=== PATIENT | male | born 1950 | race Caucasian/White ===

== ENCOUNTER → 2023-05-30 06:35 | Outpatient (REF) | payer OTHER, SELFPAY | LOC: RAD 06:35 | PROVIDERS: ATTENDING PHYSICIAN Urology; FAMILY PHYSICIAN Family Medicine; REFERRING PHYSICIAN Internal Medicine | DX: R10.31 Right lower quadrant pain (principal) | CPT/HCPCS: 74176 ==

== ENCOUNTER → 2023-06-13 08:36 | Outpatient (REF) | payer OTHER, SELFPAY ==
[2023-06-13 09:36] LABS: Hematocrit 41.3 % (39.0-52.0); Mean Corp Hgb Conc. 33.9 g/dL (33.0-37.0); Mean Corpuscular Volume 85.7 fL (80.0-94.0); Mean Platelet Volume 11.1 fL (7.4-10.4); Platelet Count 96 10^3/uL (130-400); Red Blood Cell Count 4.82 10^6/uL (4.70-6.10); Red Cell Dist. Width 13.6 % (11.5-14.5); Urine Albumin 1+ (Neg - Trace); Urine Bilirubin Negative (Negative); Urine Character Clear (Clear); Urine Color Yellow; Urine Glucose Negative (Negative); Urine Ketone Negative (Negative); Urine Leukocyte Negative (Negative); Urine Nitrite Negative (Negative); Urine Occult Blood Negative (Negative); Urine Specific Gravity 1.015 (<1.030); Urine Urobilinogen Negative (Neg - 1+); White Blood Cell Count 5.3 10^3/uL (4.8-10.8)
[2023-06-13 09:59] LABS: ALT (SGPT) 20 U/L (0-50); AST (SGOT) 24 U/L (17-59); Albumin 4.5 g/dl (3.5-5.0); Alkaline Phosphatase 57 U/L (38-126); Amylase 53 U/L (30-110); Blood Urea Nitrogen 20 mg/dl (9-20); Carbon Dioxide 26 mmol/L (22-30); Chloride 103 mmol/L (98-107); Direct Bilirubin 0.1 mg/dl (0.0-0.4); Glucose 133 mg/dl (70-99); Lipase 123 U/L (23-300); Potassium 4.2 mmol/L (3.5-5.1); Sodium 135 mmol/L (135-145); Total Bilirubin 1.1 mg/dl (0.2-1.3); Urine Bacteria Moderate (Negative); Urine Red Blood Cell 0-2 /HPF (0-2); Urine White Cell 0-2 /HPF (0-5); eGFR > 60.00
[2023-06-13 10:06] LABS: C-Reactive Protein < 5.00 mg/L (0.0-10.00)
[2023-06-13 10:14] LABS: Erythrocyte Sed Rate 11 mm/hour (0-20)
== END ==
LOC: REG 08:36
PROVIDERS: ATTENDING PHYSICIAN Nurse Practitioner Family; FAMILY PHYSICIAN Family Medicine; REFERRING PHYSICIAN Urology
DX: R10.31 Right lower quadrant pain (principal)
CPT/HCPCS: 36415; 80053; 81003; 81015; 82150; 82248; 83690; 85027; 85652; 86140; 87086

== ENCOUNTER → 2023-06-15 13:57 | Outpatient (REF) | payer OTHER, SELFPAY | LOC: RAD 13:57 | PROVIDERS: ATTENDING PHYSICIAN Nurse Practitioner Family; FAMILY PHYSICIAN Family Medicine | DX: R10.31 Right lower quadrant pain (principal) | CPT/HCPCS: 74177; Q9967 ==

== ENCOUNTER → 2023-07-07 11:10 | Outpatient (REF) | payer OTHER, MEDICARE, SELFPAY ==
[2023-07-07 12:12] LABS: Urine Albumin Trace (Neg - Trace); Urine Bilirubin Negative (Negative); Urine Character Clear (Clear); Urine Color Yellow; Urine Glucose Trace (Negative); Urine Ketone Negative (Negative); Urine Leukocyte Negative (Negative); Urine Nitrite Negative (Negative); Urine Occult Blood Negative (Negative); Urine Specific Gravity 1.015 (<1.030); Urine Urobilinogen 1+ (Neg - 1+)
== END ==
LOC: REG 11:10
PROVIDERS: ATTENDING PHYSICIAN Urology; FAMILY PHYSICIAN Family Medicine
DX: N39.0 Urinary tract infection, site not specified (principal)
CPT/HCPCS: 81003; 87086

== ENCOUNTER → 2023-07-28 06:37 | Outpatient (REF) | payer OTHER, MEDICARE, SELFPAY | LOC: RAD 06:37 | PROVIDERS: ATTENDING PHYSICIAN Surgery; FAMILY PHYSICIAN Family Medicine; REFERRING PHYSICIAN Urology | DX: R10.31 Right lower quadrant pain (principal); R10.32 Left lower quadrant pain | CPT/HCPCS: 76882 ==

== ENCOUNTER 2024-04-13 11:09 | Inpatient (IN) | payer OTHER, MEDICARE, SELFPAY ==
[2024-04-13] VITALS (11 sets, daily range): BP systolic 99–144; BP diastolic 59–134; PULSE 71; BMI 30.1
--- NOTE | 2024-04-13 07:46 | ED.GENMED ---
History of Present Illness
General
Chief Complaint: Breathing Problem
Source: patient
Time Seen by Provider: 04/13/24 07:31
History of Present Illness
History of Present Illness:
73-year-old male presents to the emergency room complaining of shortness of breath. He notes the shortness of breath primarily when he is laying flat. This has been present for the past couple weeks but seems more significant over the past day or
so. This morning he felt quite short of breath and it was distressing to him prompting him to come to the emergency room for evaluation. Sitting up the patient feels somewhat better. He denies any chest pain. Patient has a history of
cardiomyopathy and congestive heart failure. He states he is compliant with his medications. He does not take Lasix regularly but did take a dose of 20 mg today. Patient states his weight is up maybe a pound or 2 over the past couple days.
However he has been losing weight after starting Ozempic. No nausea or vomiting. Patient denies any fever
Past History
Past History
ED Past Medical History: Arrthythmia (SVT s/p ICD placement), CHF, CVA (2005 with no residual other than 'slight weakness left arm'), GERD, HTN, Hypercholesterolemia, NIDDM and Other (Cardiomyopathy)
ED Past Surgical History: Cardiac (Pacemaker/ICD) and Tonsilectomy
Patient has exhibited threatening behavior?: No
Social History
Tobacco: Non-smoker
Alcohol: None
Personal:
Living: with family
Employment: Employed (haul truck driver)
Phy Exam
Physical Exam
Physical Exam:
General: Awake, Alert, Oriented X3. No acute distress.
Vitals: unremarkable
Head: Atraumatic
Eyes: Pupils equal, EOMI
Throat: Airway intact, no exudates
Neck: Trachea midline
Lungs: Crackles bilateral lower lung glez
Heart: Regular rate, no murmurs
Abd: Soft, Nontender, No pulsatile mass
Neuro: Nonfocal
Skin: Warm, dry, no rash
Extremities: pulses equal b/l, no edema
Scores
Heart Failure Risk
Heart Failure Risk Score: Yes
History of Stroke or TIA: Yes
History of intubation for respiratory distress: No
Heart rate on ED arrival >/= 110: No
SaO2 <90% on arrival on room air: No
HR >/=110 during 3min walk test (or too ill to perform test): Yes
ECG has acute ischemic changes: No
Urea >/=12mmol/L (BUN 33.6mg/dL): No
Serum CO2>/=35mmol/L: No
Troponin I or T elevated to NE Level (0.4mg/dL): No
NT-proBNP >/=5,000ng/L (5,000pg/ml): No
HF Risk Score: 3
Admission Status: HIGH RISK 15.9% Consider SNF treatment or admission to hospital
Course
Orders/Labs/Results
Orders:
Orders
04/13/24 07:05
EKG [Electrocardiogram (*1)] Urgent
Reason for Study: Shortness of Breath
EKG- Treatment ONCE
04/13/24 07:35
Complete Blood Count/With Diff Urgent
Comprehensive Metabolic Panel Urgent
NT-proBNP Urgent
Troponin I Urgent
04/13/24 07:41
CR Chest - 2 Views Urgent
Comment:
Reason For Exam: Shortness of breath
04/13/24 07:53
COVID-19 Antigen Urgent
Source: Nasal Swab
Influenza A+B Rapid Molecular Urgent
RONALDO Source: Nasal Swab
Specimen Description:
04/13/24 09:32
Furosemide [Lasix] 40 mg IV NOW STA
04/13/24 10:52
Admit/Transfer Patient As Directed
Co-Sign Provider:
Level of Care: Inpatient admission
Assign to:: IVU
Physician / Group: Armando
Diagnosis: Acute CHF
Reason for Hospitalization: IV lasix, cardio consult
Expected length of stay greater than two midnights?: Yes
ELOS- Estimated Length of Stay in days: 3
I certify the patient meets the requirements for IP care: Yes
PRN Pain Medication Management As Directed
May give lesser potent ordered pain med per pt: Yes
preference::
Protocol:: Medication orders for pain may be administered in a
manner that supports deferring to patient preference
when the pt is:
- Requesting an ordered lesser potent pain medication.
Least to most potent pain medications are defined
as: acetaminophen < NSAID < tramadol < opioids
(morphine, oxycodone, hydromorphone).
- Requesting a lesser dose of the same medication IF
ORDERED.
- Requesting a less intrusive route of administration
if both routes are prescribed by the provider (PO <
IV).
04/13/24 10:58
Code Status As Directed
Resuscitation Status: Full Code
04/13/24 11:09
Echo 2D MMode Color/Doppler [Echo 2D MMode Color/Doppler] Routine
Reason for Study: CHF
04/13/24 22:00
Cpap [RESP] HS
Patient to use own unit?: No
Set Pressure (cm H2O): 5
Abnormal Lab Results
04/13/24
07:35
WBC 4.6 L 10^3/uL
(4.8-10.8)
RBC 4.41 L 10^6/uL
(4.70-6.10)
Plt Count 100 L 10^3/uL
(130-400)
MPV 11.2 H fL
(7.4-10.4)
Absolute Lymphs (auto) 0.9 L 10^3/uL
(1.2-3.4)
Lymphocytes % 19.8 L %
(20.5-51.1)
Glucose 105 H mg/dl
(70-99)
04/13/24 07:35
04/13/24 07:35
Vital Signs
Initial and Last Documented VS:
Initial Vital Signs
Temp Pulse Resp BP Pulse Ox
98.2 F 82 20 115/75 95
04/13/24 07:00 04/13/24 07:00 04/13/24 07:00 04/13/24 07:00 04/13/24 07:00
Last Documented Vital Signs
Temp Pulse Resp BP Pulse Ox
98.2 F 80 16 101/79 96
04/13/24 07:00 04/13/24 11:00 04/13/24 10:09 04/13/24 10:06 04/13/24 11:00
MDM/Problems Addressed
Differential Diagnosis Includes:
Pneumonia, influenza, COVID, CHF exacerbation, anemia
MDM/Problems Addressed:
Patient presents with shortness of breath particularly orthopnea. He is hemodynamically stable. His pulse ox has been hovering in the 90-92 range. Workup here reveals bilateral crackles on physical exam. His BNP is quite elevated at 2750. The
last measurement we have here was not 2020 and it was 163. Patient has not had an echocardiogram in about 4 years. He does not take Lasix on a daily basis but only on a as needed basis. It seems that his he has been had very well-controlled heart
failure for some time. The fact that he has an exacerbation now with hypoxia suggest the need for repeat echo and cardiology intervention. I do not believe he is a candidate for dose of Lasix at discharge. Will admit him to the hospitalist.
*Radiology
Radiology exam reviewed: preliminary read by ED provider (Pulmonary edema on my review of the patient's chest x-ray)
*Pulse Oximetry
Patient hypoxic: yes
Comment: 91
*EKG
Interpreted by ED Provider?: Yes
Interpretation: abnormal
Heart Rate: 82
Rate: normal
Rhythm: sinus and PVC's
QRS Pattern: right bundle branch block
Ischemia: non-specific ST changes
*Telephone Recorder Interpretation
Rate: normal
Interpretation: abnormal
Rhythm: sinus and PVC's
*Critical Care Note
Total Time (30-74mins, 75-104mins- exclusive of procedures): Not Applicable
Patient Management
Social determinants of health affecting care: Strong social support
Discussion with other providers: Hospitalist
ED Attending Note
-
Portions of this chart may have been created with voice recognition software.� Occasional wrong word or��sound alike� substitutions may have occurred due to the inherent limitations of voice recognition software.
Discharge Plan
Departure
Patient Disposition: Admit
Date of Disposition: 04/13/24
Time of Disposition: 09:49
Admit to: Med/Surg
Presentation/result/management discussed w/ accepting MD/DO: Hospitalist
Condition: Serious
Discharge Problem:
CHF (congestive heart failure)
Interventions
Interventions:
*Risk Screen - Suicide Last Done: 04/13/24 07:00
*General Assessment Last Done: 04/13/24 07:00
*Neglect/Abuse Screening Last Done: 04/13/24 07:38
*ED COVID-19 Vaccine History Last Done: 04/13/24 07:00
ED- Cardiac Assessment Last Done: 04/13/24 07:38
ED- Pulmonary Assessment Last Done: 04/13/24 07:38
[2024-04-13 07:48] LABS: % Basophils 0.9 % (0-2); % Eosinophils 0.4 % (0-6); % Immature Granulocytes 0.2 % (0-0.5); % Lymphocytes 19.8 % (20.5-51.1); % Monocytes 5.9 % (1.7-9.3); % Neutrophils 72.8 % (42.2-75.2); Absolute Lymphocytes 0.9 10^3/uL (1.2-3.4); Absolute Monocytes 0.3 10^3/uL (0.1-0.6); Absolute Neutrophils 3.3 10^3/uL (1.4-6.5); Hematocrit 39.7 % (39.0-52.0); Hemoglobin 13.4 g/dL (13.0-18.0); Mean Corp Hgb Conc. 33.8 g/dL (33.0-37.0); Mean Corpuscular Hgb 30.4 pg (27.0-31.0); Mean Platelet Volume 11.2 fL (7.4-10.4); Nucleated Red Blood Cells % 0 % (-); Platelet Count 100 10^3/uL (130-400); Red Blood Cell Count 4.41 10^6/uL (4.70-6.10); Red Cell Dist. Width 13.3 % (11.5-14.5); White Blood Cell Count 4.6 10^3/uL (4.8-10.8)
[2024-04-13 08:02] LABS: ALT (SGPT) 24 U/L (0-50); AST (SGOT) 24 U/L (17-59); Albumin 4.4 g/dl (3.5-5.0); Alkaline Phosphatase 46 U/L (38-126); Blood Urea Nitrogen 19 mg/dl (9-20); Calcium 8.4 mg/dl (8.4-10.2); Carbon Dioxide 26 mmol/L (22-30); Chloride 102 mmol/L (98-107); Glucose 105 mg/dl (70-99); Potassium 4.5 mmol/L (3.5-5.1); Sodium 138 mmol/L (135-145); Total Bilirubin 1.3 mg/dl (0.2-1.3); Total Protein 6.7 g/dl (6.3-8.2); eGFR > 60.00
[2024-04-13 08:21] LABS: COVID-19 Antigen Negative (Negative)
[2024-04-13 08:39] LABS: NT-proBNP 2750 pg/ml; Troponin I 0.017 ng/ml
[2024-04-13] MEDS: LASIX 40 MG IV ×2 (09:38→18:30)
--- NOTE | 2024-04-13 11:01 | HPS.HSE ---
Family Physician
-
Family Physician: Shreyas Flores
Chief Complaint
-
Orthopnea
History of Present Illness
73-year-old male here complaining of progressive orthopnea. Symptoms were mild in nature initially and progressively worsened prompting his visit to the emergency room. They were much worse early this morning at 5 AM.
Denies any other symptoms. Denies dyspnea on exertion. Denies chest pressure or pain.
Takes Lasix on a as needed basis, last dose this morning. Does get leg cramps due to Lasix.
Denies weight gain and in fact states he has been losing weight due to Ozempic. Denies lower extremity swelling.
Medical History
Past Medical History
Past Medical History: Reports Other
Additional Past Medical History:
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
Supraventricular tachycardia
History of TIA 2005
Essential hypertension
GERD
DM2
PARDEEP
Small bowel lipoma
Essential tremor
Peptic ulcer disease
Diverticulosis
Past Surgical History: Reports Other
Additional Past Surgical History:
ICD
Tonsillectomy
Social History
Tobacco: Non-smoker
Alcohol: None
Drug: None
Personal:
Living: With Family
Employment: Employed
Family History
Family History: Not pertinent
Allergies / Home Medications
Allergies reflects when Allergies were last updated in [facility].
Home Medications with original date entered in [facility]
Allergy/Medication List:
Allergies
Allergy/AdvReac Type Severity Reaction Status Date / Time
No Known Allergies Allergy Verified 04/13/24 07:04
Home Medications
tamsulosin 0.4 mg capsule 0.4 mg PO BID Urinary issue 12/05/18
clonazepam 0.5 mg tablet 0.5 mg PO BID anxiety 01/04/20
ergocalciferol (vitamin D2) 1,250 mcg (50,000 unit) capsule 50,000 units PO SA Supplement 01/04/20
escitalopram oxalate 20 mg tablet 20 mg PO BID Mental Health/Anxiety 01/04/20
ezetimibe 10 mg tablet 10 mg PO QPM High cholesterol 01/04/20
furosemide 20 mg tablet 20 mg PO DAILYPRN PRN edema,swelling 01/04/20
gabapentin 100 mg capsule 100 mg PO BID Pain 01/04/20
lansoprazole 30 mg capsule,delayed release 30 mg PO BID Gastrointestinal issue 01/04/20
metformin 500 mg tablet,extended release 24 hr 500 mg PO DAILY Diabetes 01/04/20
rosuvastatin 40 mg tablet (Crestor) 40 mg PO QPM High cholesterol 01/04/20
sacubitril 24 mg-valsartan 26 mg tablet (Entresto) 1 tab PO BID Heart Failure 10/04/21
ferrous sulfate 325 mg (65 mg iron) tablet (FeroSul) 325 mg PO Q48H Supplement 12/01/21
metoprolol succinate 25 mg tablet,extended release 24 hr 50 mg PO HS Heart disease/condition 12/01/21
apixaban 5 mg tablet (Eliquis) 5 mg PO BID 30 days #60 tabs 12/08/21
acetaminophen 325 mg tablet (Tylenol) 650 mg PO Q4HPRN PRN MILD PAIN 04/13/24
doxycycline hyclate 20 mg tablet 20 mg PO BID 04/13/24
semaglutide 0.25 mg or 0.5 mg (2 mg/3 mL) subcutaneous pen injector (Ozempic) 0.5 mg SC SA 04/13/24
Review of Systems
-
History Source: Patient
A 12 point ROS was completed and negative except as noted: Yes
Physical Exam
Vital Signs
Vital Signs
Temp Pulse Resp BP Pulse Ox
98.2 F 78 16 101/79 95
04/13/24 07:00 04/13/24 10:00 04/13/24 10:09 04/13/24 10:06 04/13/24 10:00
Physical Exam
General: Well Developed, Well Nourished, No Apparent Distress and Comfortable
HEENT: NormoCephalic, Anicteric and Moist mucous membranes
Respiratory: Clear
Cardiac: S1/S2 and Regular Rhythm
Breast: Deferred by me
GI: Soft, Non Tender and Non Distended
Genito-urinary: Deferred by me
Musculoskeletal: No Clubbing, No Cyanosis and No Edema
Skin: Warm and Dry
Neuro: AO x 3
Hematologic/Lymphatic: No Lymphadenopathy
Psych: Calm
Laboratory Results
-
04/13/24 07:35
04/13/24 07:35
Laboratory Results
Total Bilirubin 1.3 mg/dl (0.2-1.3) 04/13/24 07:35
AST 24 U/L (17-59) 04/13/24 07:35
ALT 24 U/L (0-50) 04/13/24 07:35
Alkaline Phosphatase 46 U/L (38-126) 04/13/24 07:35
Troponin I 0.017 ng/ml 04/13/24 07:35
Impression/Plan
-
Acute on chronic heart failure with reduced EF -admit to IVU. Continue IV Lasix. Chest x-ray shows some pulmonary edema. BNP over 1999. Consult cardiology.
History of TIA -on chronic anticoagulation with Eliquis. History of possible mural thrombus due to cardiomyopathy.
Essential hypertension -stable.
DM 2 without hyperglycemia -hold metformin. Check hemoglobin A1c. Hold Ozempic. Use low resistance insulin scale.
PARDEEP -on CPAP nightly. Resume in the hospital.
Chronic gingivitis -on chronic suppressive doxycycline.
Hyperlipidemia -rosuvastatin.
Essential tremor
History of pancytopenia -hemoglobin has recovered. WBCs and platelets remain low. Follow-up with hematology after discharge. Diagnosed with vitamin B12 deficiency in the past.
Full code
updated at the bedside.
--- NOTE | 2024-04-13 13:54 | CON.CAR ---
Addendum entered and electronically signed by Juanito Whitt MD 04/13/24 17:11:
I saw and examined the patient.
The [employer]'s note was reviewed and I agree with the note.
Comment: Briefly, 73-year-old man past medical history of heart failure with reduced ejection fraction in the setting of nonischemic cardiomyopathy as well as nonsustained VT status post ICD who presents with dyspnea and abdominal distention
concerning for acute on chronic heart failure exacerbation.
Patient reports several days of dyspnea and abdominal distention/bloating
Chest x-ray suggestive of pulmonary vascular congestion and proBNP elevated to 2700
OptiVol is elevated as well in keeping with heart failure
Echo with severely reduced left ventricular systolic function however no significant change from prior
Plan for IV Lasix twice daily
Wean oxygen as able
Follow daily weights, renal function and electrolytes
Continue home metoprolol and Entresto
Would consider addition of SGLT2 and/or Aldactone
He is not maintained on maintenance diuretic reviewed that he will likely need daily Lasix dosing on discharge
Original Note:
Consultation
Consultation Request
Date/Time Consultation Requested: 04/13/2024, 1100
Date/Time Consultation Performed: 04/13/2024, 1345
Requesting Provider: Dr. Rubi
Performing Provider: THOMAS Lopez for Dr. Whitt
Reason for Consultation: Heart failure
Medical History
-
Chief Complaint: SOB
History of Present Illness:
Patient is a 73-year-old male with PMH of HFrEF, diagnosed in 1992, nonobstructive CAD, NSVT s/p ICD, DM, stroke maintained on chronic anticoagulation with Eliquis, who presented to ED today with 2 week h/o intermittent shortness of breath. He
describes becoming short of breath when he first would lie flat with resolution of symptoms after a minute or two. He has had no exertional shortness of breath. This morning after lying flat the shortness of breath became worse and did not
resolve. He has had no edema but does feel his abdomen was mildly distended yesterday. He is on Ozempic and has been losing weight, gradually a few ounces every day, in the past 2 to 3 days his weight has gone up 2 pounds. Had been using Lasix on
PRN basis, taking infrequently but did take a dose this morning. Follows with Dr. Goodwin in cardiology office, last seen in April 2023. Heart failure regimen includes Entresto, Toprol and as needed Lasix. He has missed no doses of Entresto or
carvedilol.
Denies chest pain, palpitations, lightheadedness, syncope, edema.
Remote interrogation of his ICD today shows OptiVol trending up since January 2024. He is a paced, V sensed 31.7%, a sensed V sensed, 68%, no ventricular arrhythmias, less than 0.1% AT/AF.
Rec'd 1 dose Lasix 40 mg IV in ED
ED workup:
proBNP: 2750
Troponin 0.017
BUN/creatinine 19/0.9, NA 138, K4.5, hemoglobin 13.4, platelet 100
Chest x-ray: Nonspecific findings of increased prominence of ana luisa with slightly increased bronchovascular markings could represent mild vascular congestion, no significant pleural effusions
EKG: Normal sinus rhythm, right bundle branch block, cannot rule out inferior infarct, cannot rule out anterior infarct, PVCs
Past medical history:
Chronic heart failure with reduced EF, 30 to 35%, diagnosed 1992
status post ICD in 2005, DC [employer], gen change 2017
Essential tremor
Dyslipidemia
Sleep apnea
Ventricular tachycardia
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
Right bundle branch block
Coronary artery disease (nonobstructive by cath at [place] )
History of TIA and stroke
Insulin-dependent diabetes mellitus
Diverticulosis and diverticulitis
History of peptic ulcer disease
Admission 10/09 for syncope and dehydration with GI bleed, syncope thought to be vasovagal
Past Medical History
Past Medical History: Other (See HPI)
Past Surgical History: Other (Cardiac cath, ICD placement in 2018 [facility], Colonoscopies, laparoscopic small bowel resection 11/2021)
Social History
Tobacco: Former Smoker
Alcohol: None
Drug: None
Personal:
Living: With Family
Family History
Family History: Other (Positive for diabetes, stroke, coronary disease and hypertension)
Allergies / Home Medications
Allergy/AdvReac Type Severity Reaction Status Date / Time
No Known Allergies Allergy Verified 04/13/24 07:04
�Medication �Instructions �Recorded �Confirmed �Type
tamsulosin 0.4 mg capsule 0.4 mg PO BID Urinary issue 12/05/18 04/13/24 History
clonazepam 0.5 mg tablet 0.5 mg PO BID anxiety 01/04/20 04/13/24 History
ergocalciferol (vitamin D2) 1,250 50,000 units PO SA Supplement 01/04/20 04/13/24 History
mcg (50,000 unit) capsule
escitalopram oxalate 20 mg tablet 20 mg PO BID Mental Health/Anxiety 01/04/20 04/13/24 History
ezetimibe 10 mg tablet 10 mg PO QPM High cholesterol 01/04/20 04/13/24 History
furosemide 20 mg tablet 20 mg PO DAILYPRN PRN 01/04/20 04/13/24 History
edema,swelling
gabapentin 100 mg capsule 100 mg PO BID Pain 01/04/20 04/13/24 History
lansoprazole 30 mg capsule,delayed 30 mg PO BID Gastrointestinal issue 01/04/20 04/13/24 History
release
metformin 500 mg tablet,extended 500 mg PO DAILY Diabetes 01/04/20 04/13/24 History
release 24 hr
rosuvastatin 40 mg tablet (Crestor) 40 mg PO QPM High cholesterol 01/04/20 04/13/24 History
sacubitril 24 mg-valsartan 26 mg 1 tab PO BID Heart Failure 10/04/21 04/13/24 History
tablet (Entresto)
ferrous sulfate 325 mg (65 mg 325 mg PO Q48H Supplement 12/01/21 04/13/24 History
iron) tablet (FeroSul)
metoprolol succinate 25 mg 50 mg PO HS Heart disease/condition 12/01/21 04/13/24 History
tablet,extended release 24 hr
apixaban 5 mg tablet (Eliquis) 5 mg PO BID 30 days #60 tabs 12/08/21 04/13/24 Rx
acetaminophen 325 mg tablet 650 mg PO Q4HPRN PRN MILD PAIN 04/13/24 04/13/24 History
(Tylenol)
doxycycline hyclate 20 mg tablet 20 mg PO BID 04/13/24 04/13/24 History
semaglutide 0.25 mg or 0.5 mg (2 0.5 mg SC SA 04/13/24 04/13/24 History
mg/3 mL) subcutaneous pen injector
(Ozempic)
Review of Systems
-
History Source: Patient
All other systems: Negative unless noted
Physical Exam
Vital Signs
Temp Pulse Resp BP Pulse Ox
98.2 F 76 18 99/68 92
04/13/24 07:00 04/13/24 13:30 04/13/24 13:30 04/13/24 12:00 04/13/24 12:00
Lab Results
04/13/24 07:35
04/13/24 07:35
Troponin I 0.017 ng/ml 04/13/24 07:35
Qhf-[id number] Pept 2750 pg/ml 04/13/24 07:35
GEN: No distress, awake, Ox3
HEENT: supple, anicteric, mmm
LUNGS: Rales right base, no wheezes/rales
CV: Reg, S1/S2, 1/6 syst LSB, no murmur
ABD: soft, BS+, NT/ND
EXT: No edema
NEURO: Gross non-focal
SKIN: No rash
Impression / Plan
-
PCP: Shreyas Flores
[employer] Specialist: Dr. Phil Goodwin, last seen in 04/2023
Impression:
Acute on chronic systolic heart failure
2-week history of intermittent shortness of breath
Chronic systolic heart failure and EF around 30 to 35%
status post AICD�[employer]tr[employer]
Essential tremor
Dyslipidemia
Sleep apnea
Ventricular tachycardia
Paroxysmal A-fib
Mural thrombosis leading to stroke on chronic anticoagulation with Eliquis. Switched to Eliquis from warfarin in 2021
Right bundle branch block
Coronary artery disease
History of TIA and stroke, on Eliquis
Diabetes mellitus
Diverticulosis and diverticulitis
Anemia
History of peptic ulcer disease
Echo 11/18/20: EF 30-35%, dilated LV with mod red LV function, mod cLVH, no significant valve disease
Cath in : non-obstructive CAD
PMH:
Patient is a 73-year-old male with PMH of HFrEF, CAD, NSVT s/p ICD, DM, stroke in 2005 maintained on chronic anticoagulation with Eliquis, right bundle branch block, diabetes mellitus who presented 04/13/2024 with 2 week h/o worsening SOB.
Interrogation of his ICD today shows OptiVol fluid index gradually increasing since January, correlates with heart failure. proBNP elevated 2750 and chest x-ray with mild vascular congestion.
Acute on chronic heart failure reduced EF
-Longstanding diagnosis of chronic heart failure reduced EF, had been stable on outpatient regimen of Entresto and carvedilol with PRN furosemide until past 2 wks when developed SOB with lying down
-Agree with IV diuretics and admission
-Continue Entresto and carvedilol
-Consider addition of spironolactone and SGLT2
-Check echocardiogram, last echo 10/2020 EF 30 to 35%
-daily wt
-I/O, 2 gm Na diet
History of stroke-
-continue chronic anticoagulation with Eliquis
History of NSVT/ICD
-Remote interrogation of ICD today shows no ventricular arrhythmias
-Keep K greater than 4, mag greater than 2
-Appropriate ICD function with 3.5 years on battery
-A sensed V sensed 68%, A paced V sensed 31.7%
History of nonobstructive CAD on cath in 1992 at [place]
-reports subsequent stress tests but none recently
-No chest pain
-Troponin not elevated
-Risk factor modification
-LDL goal less than 55 given history of nonobstructive CAD and diabetes mellitus, continue Crestor and Zetia. Last lipid panel 01/2023 LDL 58- will repeat
-good BP control
-wt loss which he is trying to achieve with Ozempic
-EKG personally reviewed: Normal sinus rhythm, right bundle branch block, inferior infarct, anterior infarct, PVCs. Compared with outpt EKG 04/2023, no change
-telemetry personally reviewed: NSR/ST, PVCs
Paroxysmal A-fib
-Low A-fib burden detected on remote interrogations of ICD over the years, recent interrogation today less than 0.1% A-fib/AT
-Continue on Eliquis
-[id number] (age, CVA, DM, heart failure)
-
-Syncope - likely vasovagal due to dehydration and blood loss from GIB. Hypotensive on admission. Mildly orthostatic blood pressures am of 10/05/21. No cardiac arrhythmia found on ICD interrogation of time of event.
-Chronic anti-coagulation on Coumadin INR on presentation 2.25-> 2.12 - can hold Coumadin temporarily and resume when cleared by GI. Takes for history of prior stroke and mural thrombosis
-Acute anemia with drop of hgb 11.8 (July 2021) to 8.9 on admission. Admits to NSAID use recently for flank pain. Avoid NSAIDS. Treatment per GI and Primary team possible EGD 10/08/21
-Chronic Heart failure with reduced ejection fraction - no evidence of volume overload at this time, appears dry. Continue Entresto. Was on Toprol 100 mg BID as outpatient, currently on hold. Resume if BP allows - would start 25 mg BID and
uptitrate as tolerated.
-Telemetry reviewed sinus bradycardia with intermittent A Pacing at 50 bpm
--- NOTE | 2024-04-13 15:40 | PTCARENOTE ---
Rec'd report from ED RN; Rec'd pt [id number] able to ambulate w/1P contact guard assist from stretcher. Pt w/some generalized weakness & has bilat hand tremors, which is chronic for him. VSS w/HR in the 70's & BP on arrival appeared to be elevated so
this RN checked a manual pressure. BP 102/64. Pt is 96% on 2L O2 via NC. Pt w/no c/o CP but does c/o dyspnea on exertion. Pt oriented to room. Call beverly within reach & plan of care ongoing.
[2024-04-13] MEDS: TYLENOL 650 MG PO (16:16)
--- NOTE | 2024-04-13 16:26 | CM ---
spoke to pt in room, he is prev indep, lives withhis in a 2 story home with 1 step to enter. he has a CPAP he uses. he denies any dc planning needs. plan is for dc to home when medically stable.
--- NOTE | 2024-04-13 16:30 | PTCARENOTE ---
Pt w/13 beat run of VT while this RN was in with pt completing admission assessment. Pt reported 'feeling crampy' briefly but feeling passed. Pt briefly V-paced after episode. Dr Lockhart in to see pt immediately following. Plan of care ongoing.
[2024-04-13 17:19] LABS: Glucose - Point of Care 88 mg/dl (70-99)
[2024-04-13] MEDS: ZETIA 10 MG PO (18:29)
[2024-04-13] MEDS: CRESTOR 40 MG PO (18:29)
[2024-04-13] MEDS: FLUSH (NSS) 2 FLUSH IV (18:31)
[2024-04-13] MEDS: TOPROL XL 50 MG PO (20:45)
[2024-04-13] MEDS: KLONOPIN 0.5 MG PO (20:46)
[2024-04-13] MEDS: PROTONIX 40 MG PO (20:46)
[2024-04-13] MEDS: LEXAPRO 20 MG PO (20:46)
[2024-04-13] MEDS: ENTRESTO 24 MG/26 MG 1 TAB PO (20:46)
[2024-04-13] MEDS: ELIQUIS 5 MG PO (20:46)
[2024-04-13] MEDS: NEURONTIN 100 MG PO (20:46)
[2024-04-13] MEDS: FLOMAX 0.4 MG PO (20:46)
[2024-04-13 21:51] LABS: Glucose - Point of Care 102 mg/dl (70-99)
[2024-04-14 02:14] VITALS: PULSE 60
[2024-04-14 04:12] VITALS: BP 106/70
[2024-04-14 04:25] VITALS: BMI 29.8
[2024-04-14 05:00] LABS: Blood Urea Nitrogen 23 mg/dl (9-20); Calcium 9.1 mg/dl (8.4-10.2); Carbon Dioxide 27 mmol/L (22-30); Chloride 99 mmol/L (98-107); Estimated Creatinine Clearance 64 ml/min; Glucose 107 mg/dl (70-99); Potassium 3.9 mmol/L (3.5-5.1); Sodium 138 mmol/L (135-145); eGFR > 60.00
[2024-04-14 07:49] VITALS: BP 101/65
[2024-04-14 07:52] LABS: Glucose - Point of Care 114 mg/dl (70-99)
[2024-04-14] MEDS: PROTONIX 40 MG PO (08:17)
[2024-04-14] MEDS: ENTRESTO 24 MG/26 MG 1 TAB PO (08:17)
[2024-04-14] MEDS: KLONOPIN 0.5 MG PO (08:17)
[2024-04-14] MEDS: ELIQUIS 5 MG PO (08:17)
[2024-04-14] MEDS: LEXAPRO 20 MG PO (08:17)
[2024-04-14] MEDS: NEURONTIN 100 MG PO (08:17)
[2024-04-14] MEDS: FEOSOL 325 MG PO (08:17)
[2024-04-14] MEDS: FLOMAX 0.4 MG PO (08:17)
[2024-04-14] MEDS: LASIX 40 MG IV (08:18)
--- NOTE | 2024-04-14 08:35 | W.PN.HOSP.TC ---
Today's Communication/Plan
-
Await cardiology input
Assessment / Plan
Assessment / Plan
Gen-AAOx3, NAD
HEENT-NC, AT, anicteric, clear oral mm
Neck-supple
CV-reg, no M, +S1/S2
Lungs-clear B/L
Abd-soft, NT, ND
Ext-no edema
Musculoskeletal-no cyanosis, clubbing
Skin-warm and dry
Neuro-grossly non-focal
Psych-calm, cooperative
Acute on chronic heart failure with reduced EF -clinically resolved. Anticipate discharging on daily Lasix.
Chest x-ray shows some pulmonary edema. BNP over 1999.
Echocardiogram without significant change, LVEF 31%, stage II diastolic dysfunction, mild TR. Compared to October 2020 echo there was no significant change.
History of TIA -on chronic anticoagulation with Eliquis. History of possible mural thrombus due to cardiomyopathy.
Essential hypertension -stable.
DM 2 without hyperglycemia -hold metformin. Check hemoglobin A1c. Hold Ozempic. Use low resistance insulin scale. Resume metformin, semaglutide on discharge.
PARDEEP -on CPAP nightly. Resume in the hospital.
Chronic gingivitis -on chronic suppressive doxycycline.
Hyperlipidemia -rosuvastatin, Zetia
Essential tremor
History of pancytopenia -hemoglobin has recovered. WBCs and platelets remain low. Follow-up with hematology after discharge, he is known to Dr. Garcia. Diagnosed with vitamin B12 deficiency in the past.
Full code
Dispo -potential discharge today, await cardiology input.
Anticipated Discharge: Today
Subjective/Interval History
-
Date of Service: April 14, 2024
Patient seen and examined. Shortness of breath completely resolved. No orthopnea last night. Feels back to baseline. No complaints.
Objective Data
-
Labs:
Laboratory Results
04/14/24
04:22
Sodium 138
Potassium 3.9
Chloride 99
Carbon Dioxide 27
BUN 23 H
Creatinine 1.1
Glucose 107 H
Calcium 9.1
Vital Signs:
Vital Signs
Temp Pulse Resp BP Pulse Ox
97.5 F 64 18 106/65 96
04/14/24 07:47 04/13/24 23:30 04/14/24 07:47 04/13/24 23:26 04/14/24 07:47
I&O
04/13/24 04/14/24 04/15/24
06:59 06:59 06:59
Intake Total 1120 / 1120
Balance 0 / 1120
Review of Systems
-
History Source: Patient
All other systems: Reviewed and negative
--- NOTE | 2024-04-14 09:32 | W.PN.CARDCBS ---
Addendum entered and electronically signed by Clifton Cottrell MD 04/14/24 10:22:
I saw and examined the patient.
The [employer]ruff Worker's note was reviewed and I agree with the note.
Comment:
GEN: No distress, awake, Ox3
HEENT: supple, anicteric, mmm
LUNGS: CTA, no wheezes/rales
CV: Reg, S1/S2, 1/6 syst LSB, no gallop
ABD: soft, BS+, NT/ND
EXT: No edema
NEURO: Gross non-focal
SKIN: No rash
Plan:
Echo reviewed. EF 31% with no significant valve disease. This is stable. He has diuresed well.
Will switch to oral Lasix. We discussed taking 20 mg 2 times a week and follow his weight. His weight was difficult to follow due to the Ozempic.
Continue Toprol, Entresto, and add spironolactone 12.5mg daily. Check basic metabolic panel in 1 week
Consider SLG 2 inhibitor as outpatient.
Original Note:
Today's Communication / Plan
-
Stable NICM EF 31% on echo
Brisk overnight diuresis and below previous dry weight, recommend d/c to home on Lasix 20 mg once a week
Will arrange cardiology f/u
Impression / Plan
-
PCP: Shreyas Flores
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
Impression:
Acute on chronic systolic heart failure
2-week history of intermittent shortness of breath
Chronic systolic heart failure and EF around 30 to 35%
status post AICD�[employer]
Essential tremor
Dyslipidemia
Sleep apnea
Ventricular tachycardia
Paroxysmal A-fib
Mural thrombosis leading to stroke on chronic anticoagulation with Eliquis. Switched to Eliquis from warfarin in 2021
Right bundle branch block
Nonobstructive CAD by cath at [facility] 1992
History of TIA and stroke, on Eliquis
Diabetes mellitus
Diverticulosis and diverticulitis
Anemia
History of peptic ulcer disease
Echo 11/18/20: EF 30-35%, dilated LV with mod red LV function, mod cLVH, no significant valve disease
Echo 04/13/24: EF 31%, global hypokinesis, mild conc LVH, mildly dilated RV and low normal RV systolic function, mild TR
PMH:
-Weight is down 3 lbs and possibly more since admission. Patient is below any previous dry weight and reports caloric weight loss with diet, exercise and Ozempic.
-Patient diuresed briskly with Lasix 40 mg IV BID. Patient was taking Lasix 20 mg daily PRN and he reports that he takes a dose once every 3-4 months. Patient would be agreeable to taking Lasix 20 mg once a week moving forward.
-EF stable at 31% by echo 04/13/24.
-Outpatient dose of Entresto 24/26 mg twice daily has been continued
-Outpatient dose of Toprol XL 50 mg at bedtime has been continued
-Will add spironolactone 12.5 mg daily and recheck BMP in 1 to 2 weeks
-Patient with known history of paroxysmal A-fib and outpatient dose of Eliquis 5 mg BID (age 73, Cre 1.1) has been continued
-[employer] ICD interrogation on 04/13/2024 showed no evidence of ventricular arrhythmia, overall appropriate ICD function and 3.5 years of battery longevity
-Agree with d/c to home 04/14/24, follow up being arranged
Progress Note - Rail Car Repairer
Subjective
Date of Service: April 14, 2024
He feels well, wants to go home
Objective
Labs:
04/13/24 07:35
04/14/24 04:22
Labs
Hgb 13.4 g/dL (13.0-18.0) 04/13/24 07:35
Hct 39.7 % (39.0-52.0) 04/13/24 07:35
Plt Count 100 10^3/uL (130-400) L 04/13/24 07:35
Sodium 138 mmol/L (135-145) 04/14/24 04:22
Potassium 3.9 mmol/L (3.5-5.1) 04/14/24 04:22
BUN 23 mg/dl (9-20) H 04/14/24 04:22
Creatinine 1.1 mg/dL (0.7-1.3) 04/14/24 04:22
Glucose 107 mg/dl (70-99) H 04/14/24 04:22
Troponins
04/13/24
07:35
Troponin I 0.017
Vital Signs and I&O:
Vital Signs
Temp Pulse Resp BP Pulse Ox
97.5 F 64 18 106/65 96
04/14/24 07:47 04/13/24 23:30 04/14/24 07:47 04/13/24 23:26 04/14/24 07:47
Vital Signs
Temp Pulse Resp BP Pulse Ox
97.5 F 64 18 106/65 96
04/14/24 07:47 04/13/24 23:30 04/14/24 07:47 04/13/24 23:26 04/14/24 07:47
Intake & Output
04/12/24 04/13/24 04/14/24 04/15/24
06:59 06:59 06:59 06:59
Intake Total 1120 / 1120
Balance 1120 / 1120
Physical Exam
Physical Exam
GEN: AAOx3
HEENT: MMM
LUNGS: RA. No audible wheeze
CV: SR on tele
ABD: ND
EXT: No edema B/L
NEURO: Gross non-focal
SKIN: No rash
[2024-04-14] MEDS: DRISDOL (VITAMIN D2) 50000 UNITS PO (09:43)
--- NOTE | 2024-04-14 10:41 | W.DS.TRANS ---
DC Summary - Territory Service Representative
-
Discharge Instructions:
Discharge Diagnosis/Procedures Acute heart failure exacerbation
Diet 2 Gram Sodium,Restrict fluids to 64 oz
Activity No restrictions
Driving Restrictions As prior to admission
Bathing Restrictions None
Specialty Instructions Weigh Daily
Instructions:
Stand-Alone Forms:
Changes to Home Medications: Yes
Discharge Medications:
DC Medications w/original date entered in [id number]
tamsulosin 0.4 mg capsule 0.4 mg PO BID Urinary issue 12/05/18
clonazepam 0.5 mg tablet 0.5 mg PO BID anxiety 01/04/20
ergocalciferol (vitamin D2) 1,250 mcg (50,000 unit) capsule 50,000 units PO SA Supplement 01/04/20
escitalopram oxalate 20 mg tablet 20 mg PO BID Mental Health/Anxiety 01/04/20
ezetimibe 10 mg tablet 10 mg PO QPM High cholesterol 01/04/20
gabapentin 100 mg capsule 100 mg PO BID Pain 01/04/20
lansoprazole 30 mg capsule,delayed release 30 mg PO BID Gastrointestinal issue 01/04/20
metformin 500 mg tablet,extended release 24 hr 500 mg PO DAILY Diabetes 01/04/20
rosuvastatin 40 mg tablet (Crestor) 40 mg PO QPM High cholesterol 01/04/20
sacubitril 24 mg-valsartan 26 mg tablet (Entresto) 1 tab PO BID Heart Failure 10/04/21
ferrous sulfate 325 mg (65 mg iron) tablet (FeroSul) 325 mg PO Q48H Supplement 12/01/21
metoprolol succinate 25 mg tablet,extended release 24 hr 50 mg PO HS Heart disease/condition 12/01/21
apixaban 5 mg tablet (Eliquis) 5 mg PO BID 30 days #60 tabs 12/08/21
acetaminophen 325 mg tablet (Tylenol) 650 mg PO Q4HPRN PRN MILD PAIN 04/13/24
doxycycline hyclate 20 mg tablet 20 mg PO BID 04/13/24
semaglutide 0.25 mg or 0.5 mg (2 mg/3 mL) subcutaneous pen injector (Ozempic) 0.5 mg SC SA 04/13/24
furosemide 20 mg tablet 20 mg PO QWEEK edema,swelling #0 tabs 04/14/24
Home Medication Changes
Furosemide changed to 20 mg once weekly, every Tuesday.
Pending Results: No
[2024-04-14 10:55] VITALS: BP 93/69
--- NOTE | 2024-04-14 11:22 | PTCARENOTE ---
IV and tele removed. Discharge instructions reviewed w/ pt. Verbalizes understanding. Escorted via WC and staff assist. Discharged to home.
[2024-04-14 11:39] LABS: Glycohemoglobin (HgbA1c) 5.8 % (4.0-5.6)
== END 2024-04-14 11:23 | disposition home or self-care (01) | DRG 291 ==
LOC: IVU 11:09
PROVIDERS: ADMITTING PHYSICIAN Hospitalist; CONSULT PHYSICIAN Internal Medicine Cardiovascular Disease; EMERGENCY PHYSICIAN Emergency Medicine; FAMILY PHYSICIAN Family Medicine
DX: I11.0 Hypertensive heart disease with heart failure (principal); I50.23 Acute on chronic systolic (congestive) heart failure; E11.65 Type 2 diabetes mellitus with hyperglycemia; I42.8 Other cardiomyopathies; G47.33 Obstructive sleep apnea (adult) (pediatric); K05.10 Chronic gingivitis, plaque induced; E78.00 Pure hypercholesterolemia, unspecified; G25.0 Essential tremor; I48.0 Paroxysmal atrial fibrillation; Z86.73 Personal history of transient ischemic attack (TIA), and cerebral infarction without residual deficits; Z79.01 Long term (current) use of anticoagulants
CPT/HCPCS: 71046; 80048; 80053; 82962; 83036; 83880; 84484; 85025; 87502; 87811; 93005; 93289; 93306; 94660; 96374; 99285

== ENCOUNTER → 2024-04-24 09:15 | Outpatient (REF) | payer OTHER, MEDICARE, SELFPAY ==
[2024-04-24 10:47] LABS: Blood Urea Nitrogen 19 mg/dl (9-20); Carbon Dioxide 29 mmol/L (22-30); Chloride 103 mmol/L (98-107); Glucose 96 mg/dl (70-99); Potassium 4.8 mmol/L (3.5-5.1); Sodium 140 mmol/L (135-145); eGFR > 60.00
== END ==
LOC: REG 09:15
PROVIDERS: ATTENDING PHYSICIAN Nurse Practitioner; FAMILY PHYSICIAN Family Medicine; REFERRING PHYSICIAN Internal Medicine Cardiovascular Disease
DX: I50.22 Chronic systolic (congestive) heart failure (principal)
CPT/HCPCS: 36415; 80048

== ENCOUNTER → 2024-05-18 09:14 | Outpatient (REF) | payer OTHER, MEDICARE, SELFPAY ==
[2024-05-18 11:01] LABS: Blood Urea Nitrogen 24 mg/dl (9-20); Calcium 9.2 mg/dl (8.4-10.2); Carbon Dioxide 27 mmol/L (22-30); Chloride 105 mmol/L (98-107); Glucose 102 mg/dl (70-99); Potassium 4.8 mmol/L (3.5-5.1); Sodium 139 mmol/L (135-145); eGFR > 60.00
[2024-05-18 11:04] LABS: NT-proBNP 1940 pg/ml
== END ==
LOC: REG 09:14
PROVIDERS: ATTENDING PHYSICIAN Internal Medicine Cardiovascular Disease; FAMILY PHYSICIAN Family Medicine
DX: I42.9 Cardiomyopathy, unspecified (principal); I50.22 Chronic systolic (congestive) heart failure
CPT/HCPCS: 36415; 80048; 83880

== ENCOUNTER → 2024-06-07 09:15 | Outpatient (REF) | payer OTHER, MEDICARE, SELFPAY ==
[2024-06-07 10:51] LABS: % Basophils 0.7 % (0-2); % Eosinophils 0.9 % (0-6); % Immature Granulocytes 0.2 % (0-0.5); % Lymphocytes 23.5 % (20.5-51.1); % Monocytes 7.4 % (1.7-9.3); % Neutrophils 67.3 % (42.2-75.2); Absolute Monocytes 0.3 10^3/uL (0.1-0.6); Hematocrit 37.5 % (39.0-52.0); Hemoglobin 12.3 g/dL (13.0-18.0); Mean Corp Hgb Conc. 32.8 g/dL (33.0-37.0); Mean Corpuscular Hgb 30.3 pg (27.0-31.0); Mean Corpuscular Volume 92.4 fL (80.0-94.0); Mean Platelet Volume 11.9 fL (7.4-10.4); Nucleated Red Blood Cells % 0 % (-); Platelet Count 93 10^3/uL (130-400); Red Blood Cell Count 4.06 10^6/uL (4.70-6.10); Red Cell Dist. Width 13.4 % (11.5-14.5); White Blood Cell Count 4.4 10^3/uL (4.8-10.8)
[2024-06-07 11:13] LABS: Glycohemoglobin (HgbA1c) 5.7 % (4.0-5.6)
[2024-06-07 11:42] LABS: Microalbumin, Random Urine 7.6 mg/dl (0.6-1.7); Microalbumin/creatinine Ratio 44.6 mg/g
[2024-06-07 11:43] LABS: ALT (SGPT) 29 U/L (0-50); AST (SGOT) 23 U/L (17-59); Albumin 4.2 g/dl (3.5-5.0); Alkaline Phosphatase 46 U/L (38-126); Blood Urea Nitrogen 24 mg/dl (9-20); Calcium 9.3 mg/dl (8.4-10.2); Carbon Dioxide 28 mmol/L (22-30); Chloride 101 mmol/L (98-107); Glucose 95 mg/dl (70-99); HDL Cholesterol 45 mg/dl; LDL Cholesterol, Calculated 45 mg/dl; Potassium 4.9 mmol/L (3.5-5.1); Sodium 137 mmol/L (135-145); Total Bilirubin 1.1 mg/dl (0.2-1.3); Total Cholesterol 104 mg/dl (50-199); Total Protein 6.4 g/dl (6.3-8.2); Triglyceride 72 mg/dl (10-149); Very Low Density Lipoprotein 14 mg/dl (0-30); eGFR > 60.00
[2024-06-07 12:04] LABS: PSA, Total - Screen 7.11 ng/ml (0.0-4.0)
== END ==
LOC: REG 09:15
PROVIDERS: ATTENDING PHYSICIAN Family Medicine; REFERRING PHYSICIAN Internal Medicine Cardiovascular Disease
DX: Z12.5 Encounter for screening for malignant neoplasm of prostate (principal); E11.42 Type 2 diabetes mellitus with diabetic polyneuropathy; E78.5 Hyperlipidemia, unspecified
CPT/HCPCS: 36415; 80053; 80061; 82043; 82570; 83036; 85025; G0103

== ENCOUNTER → 2024-06-28 09:12 | Outpatient (REF) | payer OTHER, MEDICARE, SELFPAY ==
[2024-06-28 11:30] LABS: Blood Urea Nitrogen 26 mg/dl (9-20); Calcium 8.9 mg/dl (8.4-10.2); Carbon Dioxide 27 mmol/L (22-30); Chloride 105 mmol/L (98-107); Glucose 80 mg/dl (70-99); Potassium 4.8 mmol/L (3.5-5.1); Sodium 139 mmol/L (135-145); eGFR > 60.00
== END ==
LOC: REG 09:12
PROVIDERS: ATTENDING PHYSICIAN Physician Assistant; FAMILY PHYSICIAN Family Medicine
DX: I50.22 Chronic systolic (congestive) heart failure (principal)
CPT/HCPCS: 36415; 80048

== ENCOUNTER → 2024-12-06 14:03 | Outpatient (REF) | payer OTHER, SELFPAY | LOC: RAD 14:03 | PROVIDERS: ATTENDING PHYSICIAN Family Medicine | DX: R22.1 Localized swelling, mass and lump, neck (principal) | CPT/HCPCS: 76536 ==